=== PATIENT | male | born 1990 | race Caucasian/White ===

== ENCOUNTER → 2019-10-11 | Outpatient (REF) | payer OTHER | LOC: M SFHCLERA 18:47 | PROVIDERS: ATTEND Nurse Practitioner Family | DX: R68.89 Other general symptoms and signs (principal) ==

== ENCOUNTER 2021-09-09 20:47 | Emergency (ER) | payer OTHER ==
[~2021-09-09] VITALS: Ht 180.3 cm; Wt 109.1 kg
[2021-09-09] MEDS ORDERED: diazePAM 5MG TABLET PO ONE (21:55)
[2021-09-09] MEDS ORDERED: LIDOCAINE 5% (LIDODERM) PATCH TD ONE (21:55)
[2021-09-09] MEDS ORDERED: KETOROLAC 30 MG/ML 1ML VIAL IM ONE (21:55)
[2021-09-09] MEDS ORDERED: LIDO5DIS41 TD (22:41)
[2021-09-09] MEDS ORDERED: METH-1165 PO (22:41)
[2021-09-09] MEDS ORDERED: PRED20TA PO (22:41)
[2021-09-09 23:09] VITALS: BP 123/70
[2021-09-10] MEDS ORDERED: **NOTE PATIENT COMMENT** MISC XX SCH (21:00)
== END 2021-09-09 23:13 | disposition home or self-care (01) ==
LOC: M ED 20:47
DX: M51.27 Other intervertebral disc displacement, lumbosacral region (principal); M54.32 Sciatica, left side
CPT/HCPCS: 72131; 96372; 99283; J1885

== ENCOUNTER → 2021-10-08 | Outpatient (CLI) | payer OTHER ==
[~2021-10-08] MED LIST: LIDO5DIS41 TD; METH-1165 PO; PRED20TA PO
== END ==
LOC: M RAD 13:10
PROVIDERS: ATTEND Family Medicine
DX: M54.41 Lumbago with sciatica, right side (principal); M51.27 Other intervertebral disc displacement, lumbosacral region; M51.37 Other intervertebral disc degeneration, lumbosacral region